=== PATIENT | male | born 1995 | race Caucasian/White ===

== ENCOUNTER 2018-07-02 13:11 | Emergency (ER) | payer OTHER ==
[~2018-07-02] VITALS: Ht 180.3 cm; Wt 79.5 kg
[2018-07-02 13:33] VITALS: BP 101/66
[2018-07-02] MEDS ORDERED: DIPH,PERTUSS(ACELL),TET VAC/PF 0.5 ML IM-VACC ONE ×2 (13:51→14:00)
[2018-07-02] MEDS ORDERED: LIDOCAINE-MPF 2%, 2ML ONE (13:59)
[2018-07-02] MEDS ORDERED: LIDOCAINE 2%, 20ML SQ ONE (14:00)
[2018-07-02] MEDS ORDERED: BACITRACIN ZINC OINT 500U/GM, 0.9 GM ONE (14:36)
== END 2018-07-02 14:59 | disposition home or self-care (01) ==
LOC: ED 14:53
DX: S61.512A Laceration without foreign body of left wrist, initial encounter (principal); W26.0XXA Contact with knife, initial encounter; Y93.89 Activity, other specified; Y92.69 Other specified industrial and construction area as the place of occurrence of the external cause; Y99.8 Other external cause status
CPT/HCPCS: 12001; 90471; 90715; 99283; J3490